=== PATIENT | female | born 1955 | race Hispanic/Latino ===

== ENCOUNTER 2017-07-15 06:50 | Emergency (ER) | payer OTHER ==
[~2017-07-15] VITALS: Ht 160 cm; Wt 81.6 kg
--- OUTSIDE RECORDS SUMMARY | 2017-07-15 06:52 | XMS REPORT | Clinical Summary ---
Author Author [facility] Address Unknown Phone Unavailable Care Team Providers [facility] [facility] Person Name Role Phone Rebekah Rubio MD PCP Allergies Active Allergy Reactions Severity Noted Date Comments Hydrocodone-Acetaminophen Rash Low 03/11/2016 Current Medications Prescription Sig. Disp. Refills Start End Date Status Date esomeprazole (NexIUM) 20 Take 20 mg by mouth daily 09/03/19 Active MG capsule before breakfast. 14 solifenacin (VESICARE) 10 daily. 01/04/20 Active MG tablet 16 multivitamin with Take 1 tablet by mouth Active minerals tablet daily. calcium carbonate-vitamin Take 1 tablet by mouth Active D3 500 mg-200 unit per daily. tablet magnesium oxide (MAG-OX) Take 500 mg by mouth Active 400 mg tablet daily. Active Problems Not on file Family History Medical History Relation Name Comments Heart disease Brother Diabetes Maternal Grandfather Breast cancer Paternal Aunt Relation Name Status Comments Brother [place] at age 64 Maternal Grandfather Maternal Grandmother Had a pacemaker; at age 98 Paternal Aunt Social History Tobacco Use Types Packs/Day Years Used Date Never Smoker Smokeless Tobacco: Never Used Alcohol Use Drinks/Week oz/Week Comments Yes 1 Glasses of 0.6 every 2 weeks wine Sex Assigned at Date Recorded Not on file Last Filed Vital Signs Not on file Plan of Treatment Health Maintenance Due Date Last Done Comments PAP SMEAR 1978 COLONOSCOPY 2007 MAMMOGRAM 2007 INFLUENZA VACCINE 12/03/2016 ZOSTER VACCINE 2017 Results Not on fileafter 07/14/2016 Insurance Payer Benefit Subscriber ID Type Phone Address Plan / Group [employer] CIGNA PPO xxxxxxxxxxx PPO
[2017-07-15] MEDS ORDERED: IBUPROFEN 600 MG TAB PO STA (09:50)
[2017-07-15] MEDS ORDERED: SODIUM CHLORIDE 0.9% 1000ML 1,000 ML IV SCH ×2 (13:00→15:30)
[2017-07-15] MEDS ORDERED: ENOXAPARIN INJ 80 MG/0.8 ML SYR SC STA (15:47)
[2017-07-15] MEDS ORDERED: ENOXAPARIN SODIUM INJ 100 MG/ML SYR SC NR (16:00)
[2017-07-15] MEDS ORDERED: ACETAMINOPHEN 325 MG TAB PO ONE (16:45)
[2017-07-15 17:44] VITALS: BP 132/78
== END 2017-07-15 17:56 | disposition home or self-care (01) ==
LOC: FSED 06:50
DX: R10.30 Lower abdominal pain, unspecified (principal); R11.0 Nausea; I26.99 Other pulmonary embolism without acute cor pulmonale; R51 Headache
CPT/HCPCS: 74177; 76857; 80053; 81003; 85025; 85379; 99284; J7030